=== PATIENT | male | born 1985 | race Caucasian/White ===

== ENCOUNTER 2017-03-23 14:35 | Emergency (ER) | payer OTHER ==
[~2017-03-23] VITALS: Ht 193 cm; Wt 104.3 kg
[~2017-03-23 14:35] MED LIST: ACETAMINOPHEN-1 EAC1 PO; ACETAMINOPHEN325 M1 PO; ADVIL LIQUI-GE200 MG PO; BACTRIM DS TAB1 EACH PO; BENADRYL25 MG PO; CATAPRES0.1 MG PO; CLINDAMYCIN HC300 MG PO; CYCLOBENZAPRINE10 MG PO; IBUPROFEN400 MG PO; IBUPROFEN800 MG PO; KEFLEX500 MG PO; NAPROSYN500 MG PO; NORCO 10-325 T1 EACH PO; NORCO 5-325 TA1 EACH PO; OXYCODONE-ACET1 EAC1 PO; PENICILLIN V P500 MG PO; PERCOCET 5-3251 EACH PO; PERCOCET 7.5-31 EACH PO; PREDNISONE20 MG PO; ROBAXIN-750750 MG PO; TYLENOL WITH C1 EACH PO; ULTRAM50 MG PO; VICODIN 5-3001 EACH PO
[2017-03-23] MEDS ORDERED: SUBOXONE 4 MG-1 EACH SL (14:45)
== END 2017-03-23 14:54 | disposition home or self-care (01) ==
LOC: ED 14:35
DX: Z00.8 Encounter for other general examination (principal)

== ENCOUNTER 2017-08-13 20:22 | Emergency (ER) | payer OTHER ==
[~2017-08-13] VITALS: Ht 193 cm; Wt 104.3 kg
--- OUTSIDE RECORDS SUMMARY | ~2017-08-13 | XMS ---
Demographics + + + | Address | [address] | | | [address] | | | [place] [address] | + + + | Preferred Language | Unknown | + + + | Marital Status | Unknown | + + + | Buddhism Affiliation | Unknown | + + + | Race | Unknown | + + + | Ethnic Group | Unknown | + + + Author + + + | Author | [facility] | + + + | Organization | [facility] | + + + | Address | [address] | | | [place] [address] | + + + | Phone | | + + + Care Team Providers + + + + | Care Claim Processor Name | Role | Phone | + + + + Unavailable | Unavailable | + + + + PROBLEMS +---------+ + + +--------+ + + | Type | Condition | ICD9-CM | [id number] | Onset | Condition | SNOMED | | | | Code | Code | Dates | Status | Code | +---------+ + + +--------+ + + | Problem | Pain, | M25.512 | | | Active | [id number] | | | joint, | | | | | | | | shoulder | | | | | | | | region, | | | | | | | | left | | | | | | +---------+ + + +--------+ + + | Problem | Other | G89.29 | | | Active | [id number] | | | chronic | | | | | | | | pain | | | | | | +---------+ + + +--------+ + + | Problem | meterman | Z79.899 | | | Active | [id number] | | | prescripti | | | | | | | | on opiate | | | | | | | | use | | | | | | +---------+ + + +--------+ + + ALLERGIES No Known Allergies SOCIAL HISTORY Never Assessed PLAN OF CARE + +---------+ | Activity | Details | + +---------+ +---+ | | +---+ + + + | Follow Up | prn Reason:null | + + + VITAL SIGNS + + + + | Height | 74 in | 2017-04-13 | + + + + | Weight | 231 lbs | 2017-04-13 | + + + + | BMI | 29.66 kg/m2 | 2017-04-13 | + + + + | Temperature | 98.2 degrees Fahrenheit | 2017-04-13 | + + + + | Heart Rate | 73 /min | 2017-04-13 | + + + + | Blood pressure systolic | 145 mm Hg | 2017-04-13 | + + + + | Blood pressure diastolic | 78 mm Hg | 2017-04-13 | + + + + MEDICATIONS No Known Medications RESULTS No Results PROCEDURES No Known procedures IMMUNIZATIONS No Known Immunizations MEDICAL (GENERAL) HISTORY + + + + | Type | Description | Date | + + + + | Medical History | asthma - mild intermittent | | + + + + | 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 limited | | | | internal/external rotation | | | | with significant pain with | | | | the use of left shoulder he | | | | was initially on Percocet | | | | 5 325 q.6 hours and now has | | | | reduced that dose each and | | | | will continue to reduce | | | | the dose slowly he has no | | | | other significant health | | | | issues | | + + + + | Surgical History | colonoscopy | | + + + + | Surgical History | right shoulder surgery | | + + + + | Hospitalization History | colonoscopy | | + + + + | Hospitalization History | [facility] ER Visit: RT Shoulder | 12/17/2015 | | | Injury | | + + + +"
[~2017-08-13 20:22] MED LIST changes: +SUBOXONE 4 MG-1 EACH SL
[2017-08-13] MEDS ORDERED: COMBIVENT RESPIM4 GM INH (20:58)
[2017-08-13] MEDS ORDERED: PREDNISONE20 MG PO (22:15)
--- NOTE | 2017-08-14 20:29 | EKG ---
[facility] [address] [place] [address] Signed Normal sinus rhythm with sinus arrhythmia Septal infarct , age undetermined Abnormal ECG When compared with ECG of 23-APR-2016 21:00, ST no longer elevated in Anterior leads QT has lengthened Confirmed by AMARA GÓMEZ MD ([id number]) on 08/14/2017 8:29:02 PM Electronically Signed By: AMARA GÓMEZ MD 08/14/17 2029 PATIENT NAME: LA CHAO Electrocardiogram DATE OF : 89 PHYSICIAN: AMARA GÓMEZ MD REPORT #: [id number] REPORT IS CONFIDENTIAL AND NOT TO BE RELEASED WITHOUT AUTHORIZATION
== END 2017-08-13 22:24 | disposition home or self-care (01) ==
LOC: ED 20:22
DX: J45.901 Unspecified asthma with (acute) exacerbation (principal); F17.200 Nicotine dependence, unspecified, uncomplicated; Z88.5 Allergy status to narcotic agent; Z88.1 Allergy status to other antibiotic agents; Z79.899 Other long term (current) drug therapy
CPT/HCPCS: 71045; 93005; 93010; 94644; 99283

== ENCOUNTER 2017-08-15 01:01 | Emergency (ER) | payer OTHER ==
[~2017-08-15] VITALS: Ht 193 cm; Wt 104.3 kg
[~2017-08-15 01:01] MED LIST changes: +COMBIVENT RESPIM4 GM INH
[2017-08-15] MEDS ORDERED: IPRAT-ALBUT 0.5-3 ML INH (02:30)
[2017-08-15] MEDS ORDERED: TRUNEB NEBULIZ1 EACH NEB (02:31)
== END 2017-08-15 02:45 | disposition home or self-care (01) ==
LOC: ED 01:01
DX: J45.901 Unspecified asthma with (acute) exacerbation (principal); F17.200 Nicotine dependence, unspecified, uncomplicated; Z88.1 Allergy status to other antibiotic agents; Z88.5 Allergy status to narcotic agent; Z79.52 Long term (current) use of systemic steroids
CPT/HCPCS: 80053; 81001; 85025; 94644; 99283; G0480

== ENCOUNTER 2017-08-20 23:41 | Emergency (ER) | payer OTHER ==
[~2017-08-20] VITALS: Ht 193 cm; Wt 104.3 kg
[~2017-08-20 23:41] MED LIST changes: +IPRAT-ALBUT 0.5-3 ML INH; +TRUNEB NEBULIZ1 EACH NEB
== END 2017-08-21 00:34 | disposition home or self-care (01) ==
LOC: ED 23:41
DX: S60.221A Contusion of right hand, initial encounter (principal); F17.200 Nicotine dependence, unspecified, uncomplicated; Z98.890 Other specified postprocedural states; Z88.1 Allergy status to other antibiotic agents; Z88.5 Allergy status to narcotic agent; Z79.899 Other long term (current) drug therapy; W22.8XXA Striking against or struck by other objects, initial encounter; Y92.69 Other specified industrial and construction area as the place of occurrence of the external cause; Y99.0 Civilian activity done for income or pay
CPT/HCPCS: 73130; 99283

== ENCOUNTER 2017-10-27 15:05 | Emergency (ER) | payer OTHER | END 2017-10-27 15:23 | disposition left against medical advice (07) | LOC: ED 15:05 ==

== ENCOUNTER 2018-04-29 06:35 | Emergency (ER) | payer OTHER ==
[~2018-04-29] VITALS: Ht 193 cm; Wt 104.3 kg
--- OUTSIDE RECORDS SUMMARY | ~2018-04-29 | XMS | Clinical Summary ---
Demographics + + + | Address | [address] | | | [place] [address] | + + + | Home Phone | | + + + | Preferred Language | Unknown | + + + | Marital Status | Single | + + + | Episcopalian Affiliation | Unknown | + + + | Race | Unknown | + + + | Ethnic Group | Unknown | + + + Author + + + | Author | [facility] | | | and [place] | + + + | Organization | [facility] | | | and [place] | + + + | Address | Unknown | + + + | Phone | Unavailable | + + + Support + + +---------+ + | Name | Relationship | Address | Phone | + + +---------+ + | Juliano Camargo | Unknown | | + + +---------+ + Care Team Providers + +------+ + | Care Telephone Operator Name | Role | Phone | + +------+ + | No, Physician | PP | Unavailable | + +------+ + Allergies No Known Allergies Current Medications No known medications Active Problems Not on file Immunizations + + + + | Name | Dates Previously Given | Next Due | + + + + | TDAP, (ADOL/ADULT) | 03/05/2017 | | + + + + Social History + +-------+ +--------+------+ | Tobacco Use | Types | Packs/Day | Years | Date | | | | | Used | | + +-------+ +--------+------+ | Never Smoker | | | | | + +-------+ +--------+------+ + +---+---+---+ | Smokeless Tobacco: | | | | | Never Used | | | | + +---+---+---+ + + +---------+ + | Alcohol Use | Drinks/We | oz/Week | Comments | | | ek | | | + + +---------+ + | Yes | | | occasional | + + +---------+ + + + + | Sex Assigned at | Date Recorded | | | | + + + | Not on file | | + + + Last Filed Vital Signs + + + + | Vital Sign | Reading | Time Taken | + + + + | Blood Pressure | 134/77 | 03/05/20172146 PDT | + + + + | Pulse | 72 | 03/05/20172146 PDT | + + + + | Temperature | 36.8 C (98.2 F) | 03/05/20171754 PDT | + + + + | Respiratory Rate | 14 | 03/05/20172146 PDT | + + + + | Oxygen Saturation | 95% | 03/05/20172146 PDT | + + + + | Inhaled Oxygen | - | - | | Concentration | | | + + + + | Weight | 104.3 kg (230 lb) | 03/05/20171754 PDT | + + + + | Height | 193 cm (6' 4") | 03/05/20171754 PDT | + + + + | Body Mass Index | 28 | 03/05/20171754 PDT | + + + + Plan of Treatment + + + + + | Health Maintenance | Due Date | Last Done | Comments | + + + + + | Vaccine: Influenza | | | | | (#1) | 8 | | | + + + + + | Vaccine: | | 03/05/2017 | | | Dtap/Tdap/Td (2 - | 7 | | | | Td) | | | | + + + + + Results Not on filefrom Last 3 Months Insurance + +--------+ +--------+ +---------+ | Payer | Benefi | Subscriber | Type | Phone | Address | | | t Plan | ID | | | | | | / | | | | | | | Group | | | | | + +--------+ +--------+ +---------+ | [employer] | MOD[employer] | [id number] | Medica | [phone] | | MEDICAID HMO | HEALTH | | id | [id number] | | | | MDCD | | | | | | | [place] | | | | | + +--------+ +--------+ +---------+ + +--------+ +--------+ + + | Guarantor Name | Accoun | Relation to | Date | Phone | Billing Address | | | t Type | Patient | of | | | | | | | | | | + +--------+ +--------+ + + | DALJIT CAMARGO | Person | Self [birth year] Home: | [address] | | | al/Fam | | 1984 | [phone] | [address] [place] | | | day | | | [phone] | + +--------+ +--------+ + +
--- OUTSIDE RECORDS SUMMARY | ~2018-04-29 | XMS | Clinical Summary ---
Demographics + + + | Address | [address] | | | [place] [address] | + + + | Home Phone | | + + + | Preferred Language | Unknown | + + + | Marital Status | Single | + + + | Sikh Affiliation | Unknown | + + + | Race | Unknown | + + + | Ethnic Group | Unknown | + + + Author + + + | Author | [facility] | | | and [place] | + + + | Organization | [facility] | | | and [place] | + + + | Address | Unknown | + + + | Phone | Unavailable | + + + Support + + +---------+ + | Name | Relationship | Address | Phone | + + +---------+ + | Juliano Camargo | Unknown | | + + +---------+ + Care Team Providers + +------+ + | Care Light Out Examiner Name | Role | Phone | + [...] | [employer] | MODA | [id number] | Medica | [phone] | | MEDICAID HMO | HEALTH [...] Self | [birth year] | Home: | [address] | | | al/Fam | | 1984 | [phone] | [address] [place] | | | day | | | [phone] | [phone] | + +--------+ +--------+ + +
[2018-04-29] MEDS ORDERED: IBUPROFEN400 MG PO (06:44)
--- OUTSIDE RECORDS SUMMARY | 2018-04-29 06:44 | XMS ---
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 Details: LWBS CRITERIA MET - Group Notification CARE PROVIDERS Chelsey Barajas Primary Care Current PHONE: [phone] Primary Care Primary Care Current PHONE: Unknown Jordan has no Care Guidelines for this patient. Care History Medical/Surgical 10/29/2017 [facility] - Please refer patient to [facility] to PCP Chelsey Barajas for any non emergent issues. - Patient needs to be educated on Emergency room usage. Care Recommendation: This patient has had 5 or more Emergency Department visits in the last 12 months. Patient requires education on the scope and purpose of the ED as an acute care provider not a Primary Care Provider and should not be utilized for chronic conditions. If patient returns to ED please contact Community Health WorkerCarolee at [phone]. These are guidelines and the provider should exercise clinical judgment when providing care. [place] VISIT COUNT (12 MO.) 5 [facility] TOTAL 5 NOTE: Visits indicate total known visits. ED/UCC VISIT TRACKING (12 MO.) 04/29/2018 06:35 [facility] [place] TYPE: Emergency COMPLAINT: - PAIN 10/27/2017 15:07 [facility] [place] TYPE: Emergency COMPLAINT: - L WRIST PAIN 08/20/2017 23:41 [facility] [place] TYPE: Emergency COMPLAINT: - RT HAND PAIN/SWELLING DIAGNOSES: - Other assisted (current) drug therapy - Other specified industrial and construction area as the place of occurrence of the external cause - Nicotine dependence, unspecified, uncomplicated - Striking against or struck by other objects, initial encounter - Civilian activity done for income or pay - Contusion of right hand, initial encounter - Allergy status to other antibiotic agents status - Pain in right hand - OTHER SPECIFIED POSTPROCEDURAL STATES - Allergy status to narcotic agent status 08/15/2017 01:01 [facility] [place] TYPE: Emergency COMPLAINT: - ASHTMATIC PROBLEM DIAGNOSES: - Nicotine dependence, unspecified, uncomplicated - Shortness of breath - Allergy status to other antibiotic agents status - Unspecified asthma with (acute) exacerbation - Allergy status to narcotic agent status - intermediate (current) use of systemic steroids 08/13/2017 20:22 [facility] [place] TYPE: Emergency COMPLAINT: - SOB DIAGNOSES: - Allergy status to narcotic agent status - Unspecified asthma with (acute) exacerbation - Nicotine dependence, unspecified, uncomplicated - Shortness of breath - Allergy status to other antibiotic agents status - Other assisted (current) drug therapy INPATIENT VISIT TRACKING (12 MO.) No inpatient visits to display in this time frame [email or web address]
[2018-04-29] MEDS ORDERED: LEVAQUIN500 MG PO (07:18)
[2018-04-29] MEDS ORDERED: IBUPROFEN800 MG PO (07:18)
== END 2018-04-29 07:47 | disposition home or self-care (01) ==
LOC: ED 06:35
DX: J03.80 Acute tonsillitis due to other specified organisms (principal); B96.89 Other specified bacterial agents as the cause of diseases classified elsewhere; F17.200 Nicotine dependence, unspecified, uncomplicated; Z88.1 Allergy status to other antibiotic agents; Z88.5 Allergy status to narcotic agent
CPT/HCPCS: 96372; 99282; J1885

== ENCOUNTER → 2020-06-10 | Emergency (ER) | payer OTHER ==
[~2020-06-10] VITALS: Ht 193 cm; Wt 109.3 kg
[~2020-06-10] MED LIST changes: +AUGMENTIN 875-1 EACH PO; +LEVAQUIN500 MG PO
--- OUTSIDE RECORDS SUMMARY | 2020-06-10 01:04 | XMS ---
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 Jordan has no Care Guidelines for this patient. Care History Medical/Surgical 10/29/2017 [facility] - Please refer patient to [facility] to PCP Chelsey Barajas for any [...] ED please contact Community Health WorkerCarolee at [phone]. These are guidelines and the provider should exercise clinical judgment when providing care. E.D. VISIT COUNT (12 MO.) 1 [facility] TOTAL 1 NOTE: Visits indicate total known visits. ED/UCC VISIT TRACKING (12 MO.) 06/10/2020 01:02 [facility] TYPE: Emergency COMPLAINT: - ABDOMINAL PAIN INPATIENT VISIT TRACKING (12 MO.) No inpatient visits to display in this time frame [email or web address]
== END ==
LOC: ED 01:01
DX: L03.311 Cellulitis of abdominal wall (principal); F17.200 Nicotine dependence, unspecified, uncomplicated; Z88.5 Allergy status to narcotic agent; Z88.1 Allergy status to other antibiotic agents
CPT/HCPCS: 99283

== ENCOUNTER 2020-10-15 23:23 | Emergency (ER) | payer OTHER ==
[~2020-10-15] VITALS: Ht 193 cm; Wt 109.3 kg
--- OUTSIDE RECORDS SUMMARY | 2020-10-15 23:26 | XMS ---
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 [facility] VISIT COUNT (12 MO.) 2 [facility] TOTAL 2 NOTE: Visits indicate total known visits. ED/UCC VISIT TRACKING (12 MO.) 10/15/2020 23:24 [facility] [place] TYPE: Emergency COMPLAINT: - CHEST PAIN 06/10/2020 01:02 [facility] [place] TYPE: Emergency COMPLAINT: - ABDOMINAL PAIN DIAGNOSES: - Cellulitis of abdominal wall - Allergy status to other antibiotic agents - Allergy status to other antibiotic agents - Allergy status to narcotic agent - Nicotine dependence, unspecified, uncomplicated - Allergy status to narcotic agent INPATIENT VISIT TRACKING (12 MO.) No inpatient visits to display in this time frame [email or web address]
--- NOTE | 2020-10-16 19:09 | EKG ---
[facility] [address] [place], [place] [address] Signed Normal sinus rhythm with sinus arrhythmia Septal infarct (cited on or before 13-AUG-2017) Abnormal ECG When compared with ECG of 13-AUG-2017 20:43, Questionable change in initial forces of Septal leads Confirmed by SURI MCCULLOUGH DO ([id number]) on 10/16/2020 7:09:32 PM Electronically Signed By: SURI MCCULLOUGH DO 10/16/20 1909 PATIENT NAME: LA CHAO Electrocardiogram DATE OF : 89 PHYSICIAN: SURI MCCULLOUGH DO REPORT #: [id number] REPORT IS CONFIDENTIAL AND NOT TO BE RELEASED WITHOUT AUTHORIZATION
== END 2020-10-16 00:20 | disposition left against medical advice (07) ==
LOC: ED 23:23
DX: Z53.21 Procedure and treatment not carried out due to patient leaving prior to being seen by health care provider (principal)
CPT/HCPCS: 93005; 93010

== ENCOUNTER 2022-04-14 02:15 | Emergency (ER) | payer SELFPAY ==
[~2022-04-14] VITALS: Ht 193 cm; Wt 109.3 kg
--- OUTSIDE RECORDS SUMMARY | 2022-04-14 02:22 | XMS ---
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 CRITERIA MET - Group Notification CARE PROVIDERS There are no care providers on record at this time. Jordan has no Care Guidelines for this patient. [facility] VISIT COUNT (12 MO.) 1 [facility] TOTAL 1 NOTE: Visits indicate total known visits. ED/C VISIT TRACKING (12 MO.) [facility] COMPLAINT: - LEFT ARM BURN INPATIENT VISIT TRACKING (12 MO.) No inpatient visits to display in this time frame [id number]
[2022-04-14] MEDS ORDERED: DOXYCYCLINE HY100 MG PO (02:33)
== END 2022-04-14 02:45 | disposition home or self-care (01) ==
LOC: ED 02:15
DX: T22.212A Burn of second degree of left forearm, initial encounter (principal); Z87.891 Personal history of nicotine dependence; Z88.5 Allergy status to narcotic agent; Z88.1 Allergy status to other antibiotic agents; X19.XXXA Contact with other heat and hot substances, initial encounter
CPT/HCPCS: 99283; A9270